=== PATIENT | female | born 1950 | race Caucasian/White ===

== ENCOUNTER 2020-02-22 16:21 | Emergency (ER) | payer MEDICARE ==
[~2020-02-22] VITALS: Ht 152.4 cm; Wt 52.6 kg
[2020-02-22] MEDS ORDERED: ONDANSETRON 4 MG/2 ML VIAL IV ONE (16:45)
[2020-02-22] MEDS ORDERED: PANT40TA49 PO (16:45)
[2020-02-22] MEDS ORDERED: BENA20TA9 PO (16:45)
[2020-02-22] MEDS ORDERED: DICL100G16 TP (16:45)
[2020-02-22] MEDS ORDERED: NAPR-1009 PO (16:45)
[2020-02-22] MEDS ORDERED: FAMO20TA8 PO (16:45)
[2020-02-22] MEDS ORDERED: ROSU20TA2 PO (16:45)
[2020-02-22] MEDS ORDERED: IV NORMAL SALINE 1000 ML BAG IV ONE (16:45)
[2020-02-22] MEDS ORDERED: MIRA25TA PO (16:45)
[2020-02-22] MEDS ORDERED: ESCI5TAB PO (16:45)
[2020-02-22] MEDS ORDERED: MORPHINE SULFATE 2 MG/1 ML DISP.SYRIN IV ONE (16:45)
[2020-02-22] MEDS ORDERED: LORA-259 PO (16:45)
[2020-02-22] MEDS ORDERED: MORPHINE SULFATE 4 MG/1 ML DISP.SYRIN ONE (16:53)
[2020-02-22] MEDS ORDERED: ONDANSETRON 4 MG/2 ML VIAL ONE (16:53)
[2020-02-22] MEDS ORDERED: HYDROMORPHONE 1 MG/1 ML DISP.SYRIN ONE ×2 (16:57→17:29)
[2020-02-22] MEDS ORDERED: CLOPIDOGREL 75 MG TABLET ONE (16:59)
[2020-02-22] MEDS ORDERED: CLOPIDOGREL 75 MG TABLET PO ONE (17:00)
[2020-02-22 17:13] LABS: BASOPHILS # (AUTO) 0.1 K/uL (0.0-8.0); BASOPHILS % (AUTO) 0.8 % (0.0-2.0); EOSINOPHILS % (AUTO) 0.1 % (0.0-7.0); HEMATOCRIT 40.2 % (31.2-41.9); HEMOGLOBIN 13.5 g/dL (10.9-14.3); LYMPHOCYTES # (AUTO) 1.1 K/uL (20.0-40.0); LYMPHOCYTES % (AUTO) 11.1 % (20.5-51.5); MEAN CORPUSCULAR HEMOGLOBIN 28.1 uug (24.7-32.8); MEAN CORPUSCULAR HGB CONC 34 g/dL (32.3-35.6); MEAN CORPUSCULAR VOLUME 83.4 fL (75.5-95.3); MONOCYTES # (AUTO) 0.6 K/uL (2.0-10.0); MONOCYTES % (AUTO) 5.8 % (0.0-11.0); NEUTROPHILS # (AUTO) 7.9 K/uL (1.8-8.9); NEUTROPHILS % (AUTO) 82.2 % (38.5-71.5); PLATELET COUNT (AUTO) 265 K/uL (179-408); RED BLOOD CELL COUNT(AUTO) 4.81 MIL/uL (3.63-4.92); WHITE BLOOD COUNT (AUTO) 9.6 K/uL (3.8-11.8)
[2020-02-22] MEDS ORDERED: PANTOPRAZOLE SODIUM 40 MG VIAL ONE (17:18)
[2020-02-22 17:25] LABS: POTASSIUM 3.4 mmol/L (3.5-5.1)
[2020-02-22] MEDS ORDERED: HYDROMORPHONE 1 MG/1 ML DISP.SYRIN IV ONE (17:30)
[2020-02-22] MEDS ORDERED: PANTOPRAZOLE SODIUM 40 MG VIAL IV ONE (17:30)
[2020-02-22 17:31] LABS: BILIRUBIN,DIRECT 0.2 mg/dL (0.0-0.2); BILIRUBIN,TOTAL 0.8 mg/dL (0.2-1.0); TOTAL PROTEIN, SERUM 7.8 g/dL (6.4-8.2)
--- NOTE | 2020-02-22 17:43 | NUR ---
heparin bolus given. heparin drip not start, because paramedics said they cannot transfer the pt on heparin drip. md notified and oked.
[2020-02-22] MEDS ORDERED: HEPARIN/D5W DRIP 500 ML IV PRN (17:45)
[2020-02-22] MEDS ORDERED: HEPARIN/D5W DRIP 500 ML ONE (17:47)
--- NOTE | 2020-02-22 17:50 | NUR ---
talked and updated pt daughter multiple times.
[2020-02-22] MEDS ORDERED: HEPARIN SODIUM,PORCINE 5,000 UNITS/ML VIAL ONE (17:51)
--- NOTE | 2020-02-22 17:55 | NUR ---
zakia smith talked to cardiolojacques at [facility] at [phone] multiple time. Addendum: 02/22/20 at 1846 by BELTRAN correction on the policy advisor ; Yared.
--- NOTE | 2020-02-22 17:57 | NUR ---
pt transfered to [facility] with code 54 guidelines. pt states that the epigastric pain has resolved but pain in the left arm. Addendum: 02/22/20 at 1926 by BELTRAN but pain in the left arm still is at 3/10.
[2020-02-22] MEDS ORDERED: HEPARIN SODIUM,PORCINE/PF 100 UNIT/ML, 5ML SYR XX ONE (19:00)
[2020-02-23] MEDS ORDERED: HYDROMORPHONE 1 MG/1 ML DISP.SYRIN IV ONE (12:30)
== END 2020-02-22 17:57 | disposition short-term general hospital (02) ==
LOC: ER 16:24
DX: I21.3 ST elevation (STEMI) myocardial infarction of unspecified site (principal); E87.6 Hypokalemia; R79.89 Other specified abnormal findings of blood chemistry; Z87.11 Personal history of peptic ulcer disease; Z79.899 Other long term (current) drug therapy
CPT/HCPCS: 36415; 71045; 80048; 80076; 83690; 84484; 85025; 85730; 93005; 96361; 96374; 96375; 96376; 99291; C9113; J1170 ×2; J1644; J2270; J2405; 70030-TC; J7030